=== PATIENT | male | born 1970 | race American Indian/Alaskan Native ===

== ENCOUNTER 2017-07-18 14:20 | Outpatient (CLI) | payer OTHER ==
--- NOTE | 2017-07-18 15:23 | XRay Report ---
ROUTINE CHEST, TWO VIEWS: HISTORY: Cough. The trachea, heart, mediastinal contour, lung browning and bony thorax are unremarkable. IMPRESSION: Unremarkable chest x-ray.
== END 2017-07-18 14:21 | disposition home or self-care (01) ==
LOC: XRAY 14:20
PROVIDERS: ATTEND Nurse Practitioner
DX: R05 Cough (principal)
CPT/HCPCS: 71046